=== PATIENT | female | born 1970 | race Asian ===

== ENCOUNTER → 2016-08-08 | Outpatient (CLI) | payer BC, OTHER ==
[~2016-08-08] MED LIST: TOBRSUS OPL
--- NOTE | 2016-08-08 11:26 | DIAGNOSTIC IMAGING REPORT ---
RIGHT PELVIS UNILATERAL HIP 1 VIEW CLINICAL HISTORY: RIGHT GROIN PAIN Right COMPARISON STUDY: Pelvis 06/02/2009. FINDINGS: No fracture or dislocation within the pelvis or hips. The sacrum is intact. Cartilage spaces are maintained. Pelvic phleboliths are again noted. IMPRESSION: No fracture or dislocation within the pelvis or hips. Electronically signed by: Maulik Lim M.D. 08/08/2016 11:25 AM Dictated Date/Time: 08/08/2016 11:19 AM
== END | disposition home or self-care (01) ==
LOC: C.RDSM 13:05
PROVIDERS: ATTEND Internal Medicine
DX: R10.30 Lower abdominal pain, unspecified (principal)

== ENCOUNTER → 2016-09-19 | Outpatient (CLI) | payer BC ==
--- NOTE | 2016-09-19 10:33 | DIAGNOSTIC IMAGING REPORT ---
MRI OF THE LEFT THUMB WITHOUT IV CONTRAST CLINICAL HISTORY: Left thumb sprain. COMPARISON STUDY: No priors. TECHNIQUE: MRI of the left thumb is performed utilizing various T1 and T2-weighted sequences in the axial, sagittal, and coronal planes. IV contrast was not administered for this examination. The examination is severely compromised by open MRI technique. The examination is also compromised by suboptimal positioning and motion artifact. Interpretation is suboptimal without plain film correlate. FINDINGS: Normal marrow signal intensity is preserved throughout the visualized bony structures. There is no MRI evidence of fracture or dislocation in the thumb. Mild soft tissue edema is present around the first metacarpophalangeal joint. The radial collateral ligament is intact. There is thickening with increased/abnormal signal identified in the ulnar collateral ligament. Partial thickness tearing is suspected. There is no clear evidence of full thickness tearing or retraction. IMPRESSION: 1. Significantly compromised examination as above. 2. There is no MRI evidence of fracture or dislocation in the thumb. 3. Suspect partial-thickness tearing of the ulnar collateral ligament at the first metacarpophalangeal joint. No full-thickness tear is identified and there is no significant retraction. Dictated: 09/19/2016 9:16 AM Transcribed: 09/19/2016 10:33 AM [facility] Electronically signed by: Jaylan Gibson M.D. 09/19/2016 11:54 AM Dictated Date/Time: 09/19/2016 9:16 AM
== END | disposition home or self-care (01) ==
LOC: C.OPENMRI 07:44
DX: S63.602A Unspecified sprain of left thumb, initial encounter (principal); X58.XXXA Exposure to other specified factors, initial encounter

== ENCOUNTER 2016-12-17 18:38 | Emergency (ER) | payer OTHER, BC ==
[~2016-12-17] VITALS: Ht 157.5 cm; Wt 55.2 kg
[2016-12-17 18:46] VITALS: Ht 157.5 cm; Wt 55.2 kg
[2016-12-17] MEDS ORDERED: IBUPROFEN 600 MG TAB PO STA (19:10)
--- NOTE | 2016-12-17 19:36 | DIAGNOSTIC IMAGING REPORT ---
LEFT HUMERUS 2 VIEWS CLINICAL HISTORY: Left arm pain. FINDINGS: AP and lateral views of the left humerus are obtained. No prior studies are available for comparison at the time of dictation. The skeletal structures are well mineralized. There is no radiographic evidence of left humeral fracture. The shoulder and elbow joints are grossly maintained. The overlying soft tissues are within normal limits. The imaged left lung parenchyma appears clear. IMPRESSION: There is no radiographic evidence of left humeral fracture. Electronically signed by: Jaylan Gibson M.D. 12/17/2016 7:34 PM Dictated Date/Time: 12/17/2016 7:34 PM
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
[2016-12-17] MEDS ORDERED: TOBRSUS OPL (19:54)
[2016-12-17 20:00] VITALS: BP 145/82; PULSE 74; TEMP 36.8; O2SAT 99
== END 2016-12-17 19:55 | disposition home or self-care (01) ==
LOC: C.EDB 18:39 → C.EDD 19:55
DX: S40.022A Contusion of left upper arm, initial encounter (principal); V43.52XA Car driver injured in collision with other type car in traffic accident, initial encounter; Y92.410 Unspecified street and highway as the place of occurrence of the external cause

== ENCOUNTER → 2017-09-26 | Outpatient (CLI) | payer BC ==
--- NOTE | 2017-09-26 15:25 | DIAGNOSTIC IMAGING REPORT ---
MRI LEFT KNEE NO CONTRAST CLINICAL HISTORY: LEFT KNEE PAIN COMPARISON STUDY: Conventional radiographic study dated 09/24/2017 FINDINGS: Imaging was performed in the axial, sagittal, and coronal planes. There are no areas of marrow edema to indicate occult fracture or bone bruise. The patellar and quadriceps tendons appear intact. The anterior and posterior cruciate ligaments appear intact. There is trace joint fluid. The medial and lateral collateral ligaments appear intact. There is mild medial and lateral joint compartment cartilaginous thinning. There is a tiny para labral lateral meniscal cyst. No meniscal tears are visualized. IMPRESSION: 1. No evidence of cruciate or collateral ligament disruption 2. No meniscal tears identified 3. No evidence of occult fracture or bone bruise 4. Trace joint effusion and mild degenerative change Electronically signed by: Reed West M.D. 09/26/2017 3:24 PM Dictated Date/Time: 09/26/2017 3:19 PM
== END | disposition home or self-care (01) ==
LOC: C.MRIBC 14:20
PROVIDERS: ATTEND Orthopaedic Surgery
DX: M25.562 Pain in left knee (principal)